=== PATIENT | female | born 1980 | race African-American/Black ===

== ENCOUNTER 2020-12-15 17:23 | Emergency (ER) | payer MEDICARE ==
[~2020-12-15] VITALS: Ht 160 cm; Wt 129.6 kg
[2020-12-15] MEDS ORDERED: DEXT10TA4 PO (17:33)
[2020-12-15] MEDS ORDERED: ZOLP-280 PO (17:33)
[2020-12-15] MEDS ORDERED: PREG25 PO (17:33)
[2020-12-15] MEDS ORDERED: NORT10 PO (17:33)
[2020-12-15] MEDS ORDERED: MELO-107 PO (17:33)
[2020-12-15] MEDS ORDERED: SERT-158 PO (17:33)
[2020-12-15] MEDS ORDERED: QUET100T PO (17:33)
[2020-12-15] MEDS ORDERED: METF-960 PO (17:33)
[2020-12-15] MEDS ORDERED: LIDOCAINE 5% TRANSDERMAL PATCH TD ONE (18:00)
[2020-12-15] MEDS ORDERED: OxyCODONE HCL/ACETAMINOPHEN 5-325 MG TABLET PO ONE (18:00)
[2020-12-15] MEDS ORDERED: KETOROLAC TROMETHAMINE 30 MG/ML VIAL IM ONE (18:00)
[2020-12-15 18:52] VITALS: BP 141/74
== END 2020-12-15 18:59 | disposition home or self-care (01) ==
LOC: EMS 17:23
DX: M54.5 Low back pain (principal); F32.9 Major depressive disorder, single episode, unspecified; I10 Essential (primary) hypertension; E11.9 Type 2 diabetes mellitus without complications; Z79.84 Long term (current) use of oral hypoglycemic drugs; Z79.899 Other long term (current) drug therapy
CPT/HCPCS: 82962; 96372; 99283; J1885